=== PATIENT | male | born 1945 | race Hispanic/Latino ===

== ENCOUNTER 2018-09-21 08:28 | Emergency (ER) | payer MEDICARE ==
[~2018-09-21 08:28] MED LIST: ASPI81TA40 PO; ATOR10 PO; CLON0.2T PO; LOSA100T58 PO
[2018-09-21] MEDS ORDERED: ONDANSETRON HCL 4 MG/2 ML VIAL ONE (08:58)
[2018-09-21] MEDS ORDERED: MORPHINE SULFATE 4 MG/1ML SYG ONE (08:58)
[2018-09-21 09:11] LABS: BASOPHILS % (AUTO) 1.2 % (0.0-5.0); EOSINOPHILS % (AUTO) 4.1 % (0.0-8.0); LYMPHOCYTES % (AUTO) 27.2 % (21.0-51.0); MEAN CORPUSCULAR HEMOGLOBIN 31.5 pg (27.0-33.0); MEAN CORPUSCULAR HGB CONC 33.3 g/dL (32.0-36.0); MEAN CORPUSCULAR VOLUME 94.7 fL (79-99); MONOCYTES % (AUTO) 7.7 % (3.0-13.0); NEUTROPHILS % (AUTO) 59.8 % (40.0-77.0); PLATELET COUNT (AUTO) 197 K/uL (130-400); RED BLOOD CELL COUNT(AUTO) 3.91 MIL/uL (4.50-6.20); RED CELL DISTRIBUTION WIDTH 13.4 % (11.0-15.5); WHITE BLOOD COUNT (AUTO) 5.2 K/uL (4.8-10.8)
[2018-09-21 09:20] LABS: CREATININE 1.3 mg/dL (0.5-1.5); POTASSIUM 3.9 mmol/L (3.5-5.1)
[2018-09-21 09:27] LABS: ALBUMIN 3.1 g/dL (3.5-5.0); BILIRUBIN,TOTAL 0.9 mg/dL (0.2-1.0); TOTAL PROTEIN, SERUM 6.6 g/dL (6.0-8.3)
[2018-09-21] MEDS ORDERED: LORAZEPAM 2 MG/ML 1 ML VIAL ONE (12:46)
== END 2018-09-21 13:36 | disposition left against medical advice (07) ==
LOC: EDH 08:28
DX: R51 Headache (principal); R27.0 Ataxia, unspecified; M79.672 Pain in left foot; M25.562 Pain in left knee; E11.9 Type 2 diabetes mellitus without complications; E78.5 Hyperlipidemia, unspecified; I10 Essential (primary) hypertension
CPT/HCPCS: 36415; 70450; 70551; 80053; 82550; 83605; 84484; 85025; 96374; 96375; 99284; J2270; J2405; J2060

== ENCOUNTER 2018-09-22 09:11 | Inpatient (IN) | payer MEDICARE | END 2018-10-12 07:05 | LOC: EDH 09:11 → EDHIP 12:21 → 3BH 14:56 | DX: L03.115 Cellulitis of right lower limb (principal); F31.30 Bipolar disorder, current episode depressed, mild or moderate severity, unspecified; F01.51 Vascular dementia, unspecified severity, with behavioral disturbance; E11.65 Type 2 diabetes mellitus with hyperglycemia; R62.7 Adult failure to thrive; R29.6 Repeated falls; F31.9 Bipolar disorder, unspecified; F43.22 Adjustment disorder with anxiety; F60.2 Antisocial personality disorder ==